=== PATIENT | female | born 1950 | race Caucasian/White ===

== ENCOUNTER 2024-03-01 13:45 | Outpatient (RCR) | payer MEDICARE, OTHER, SELFPAY ==
--- NOTE | 2024-01-20 17:30 | OPREHPOC ---
Outpatient Therapy Plan of Care This is a Multidisciplinary Plan of Care that may contain components documented by all disciplines (PT, OT, and ST.) PT Goal 1 Goal Pt will be independent in HEP Pt will verbalize understanding of diagnosis and prognosis Target Visit 10 PT Problem 2 PT Problem #2 Impaired Flexibility PT Goal 1 Goal Pt will demo prone quads length of 100 degrees or greater Target Visit 10 PT Goal 2 Goal Pt will demo improved gastroc flexibility to only mild defict Target Visit 10 PT Problem 3 PT Problem #3 Impaired Strength PT Goal 1 Goal Pt will demo strength of 4-/5 in all tested planes Target Visit 10 PT Goal 2 Goal Pt will demo strength of 4/5 in all tested planes Target Visit 20 PT Problem 4 PT Problem #4 Impaired Balance PT Goal 1 Goal Pt 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
--- NOTE | 2024-01-20 17:34 | PTOPEVAL1 ---
Assessment and note entered by Cely Scott, PT Evaluation Information Assessment Status Evaluation Diagnosis z96.649, ivonne primary OA of knee, pain in right knee ICD-10 Condition Codes (PT) Pain in right hip M25.551,Difficulty Walking R26.2 ,R26.9,Weakness R53.1 Onset n/a Subjective Information Pt reports on right hip, after the surgery the leg is longer than the left. States the doctor told her it would go away and is still present and causes a problem. Knees bother me quite a bit . L knee 2003, R knee 2010, R hip ~ 4-5 years ago. With getting up, has to consciously straight up before she can walk. Pt reports balance portion of walking is problematic. Feels like she could fall if she goes to fast. Pt would like to even out her legs. Reports thinks a heel lift would help. States had something like this a long time ago, shortly after hip surgery but remembers it feeling uncomfortable. Reported Pain Level Pain Score 0: Self Report Additional Pain Score Comments Reports right hip is not painful, but causes difficulty in walking and this bothers everything else Assessment PT Clinical Summary Pt presents with complaints of ivonne kene discomfor and right hip deficits for multiple yeras. States she has greatest difficulty with walking and balance at this time but also has cristela rhoda the knees with standing long periods. Pt demo's multiple gait abnormalities, postural deficits, leg length discrepancy, strength and flexibility deficits all impacting her balance and mobility. Pt will greatly benefit from physical therapy to address these issues, educate and assist in postural alignment, and improve discomfort to allow safet, more independent fucntion. Plan of Care Interventions Electrical Stimulation,Gait Training,Hot Pack/Cold Pack,Manual Therapy,Neuro Re-education,Patient/ Caregiver Educati,Therapeutic Activities, Therapeutic Exercise,Self-Care/Home Management PT Services Indicated Yes Treatment Frequency and 1-2x weekly x 10 visit Duration These treatments will address the objective and functional deficits as defined above. The patient will be advanced safely and appropriately in order for the patient to progress towards his/her prior level of function. Additional exercis
--- NOTE | 2024-03-01 14:39 | PTOPDC ---
Assessment and note entered by Cely Scott, PT Evaluation Information Assessment Status Discharge Diagnosis z96.649, ivonne primary OA of knee, pain in right knee ICD-10 Condition Codes (PT) Pain in right hip M25.551,Difficulty Walking R26.2 ,R26.9,Weakness R53.1 Onset n/a Subjective Information Biggest improvement is able to do more everyday activities, can walk better. Pt reports no longer has to pause and be conscious of her right knee when she is walking. Pt reports maybe felt like might fall once in the last week, thinking may have been with a sharp turn. Has been walking around the house with shoes on because is easier. Pt states she get her exercises done most of the time, might forget once or twice Reported Pain Level Pain Score 0: Self Report Assessment PT Clinical Summary Pt has attended therapy consistently for her knee pain and balance/mobility deficits. She demo's greatly improved ambulation, increased strength both functionally and with resistance testing, demos improved flexibility of multiple muscles, and shows a perceived disability drop from 44% to 18%. Though patient has not met all formal goals, she has progressed well in all settings and is safe to discharge therapy and continue independently at this time. Thus patient is being discharged for completion of program. Plan of Care PT Services Indicated No
== END 2024-03-01 15:05 | disposition home or self-care (01) ==
LOC: ANHHIPT 13:45
PROVIDERS: PCP Physician Assistant Medical; Visit Provider Physician Assistant Medical
DX: M17.0 Bilateral primary osteoarthritis of knee (principal); M25.551 Pain in right hip; Z96.649 Presence of unspecified artificial hip joint
CPT/HCPCS: 97110; 97112; 97116; 97162; 97530; 97750